=== PATIENT | male | born 2005 | race Caucasian/White ===

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

== ENCOUNTER → 2025-01-08 | Outpatient (CLI) | payer OTHER ==
[~2025-01-08] MED LIST changes: +TETR15DR16 OU; -TETR15DR2 OU
[2025-01-08 16:08] LABS: PLATELET COUNT, AUTOMATED 129 10^3/uL (150-450)
[2025-01-08 16:34] LABS: ALT/SGPT < 9 U/L (7.0-40); AST/SGOT 12 U/L (<34); CALCIUM LEVEL 9.9 MG/DL (8.5-10.1); CARBON DIOXIDE LEVEL 29 MMOL/L (20-31); CHLORIDE LEVEL 103 MMOL/L (98-107); CHOLESTEROL LEVEL 171 MG/DL (<200); CHOLESTEROL RISK RATIO 4.40 (<5); CREATININE FOR GFR 1.24 MG/DL (0.70-1.30); GLOMERULAR FILTRATION RATE 85.4 (>60); IRON (FE) 72 UG/DL (65-175); LDL CHOLESTEROL 122.6 MG/DL (<100); NON-HDL-C 132.2 MG/DL; PERCENT SATURATION 21.8 % (19.7-50.0); POTASSIUM SERUM 4.5 MMOL/L (3.5-5.1); SODIUM LEVEL 141 MMOL/L (136-145); TRIGLYCERIDES LEVEL 48 MG/DL (<150)
[2025-01-08 16:35] LABS: FREE T4 1.36 NG/DL (0.83-1.43)
[2025-01-08 16:36] LABS: TOTAL 25(OH) VITAMIN D 13.8 NG/ML (20.0-100.0); VITAMIN B12 LEVEL 456 PG/ML (211-911)
[2025-01-08 16:53] LABS: ESTIMATED AVERAGE GLUCOSE 108.0 MG/DL (60-110)
[2025-01-15 22:42] LABS: IMMUNOGLOBULIN A CELIAC 130 mg/dL (47-310); t-TRANSGLUTAMINASE(tTG) IgA < 1.0 U/mL (<15.0); t-TRANSGLUTAMINASE(tTG) IgG < 1.0 U/mL (<15.0)
== END ==
LOC: M PLALAB 13:50
PROVIDERS: ATTEND Nurse Practitioner Family
DX: R42 Dizziness and giddiness (principal); Z13.220 Encounter for screening for lipoid disorders; R11.10 Vomiting, unspecified